=== PATIENT | female | born 1935 | race Caucasian/White ===

== ENCOUNTER 2019-07-18 09:45 | Observation (INO) | payer OTHER ==
[2019-07-18 09:59] VITALS: BMI 17.6
--- NOTE | 2019-07-18 10:11 | PDOC ---
History of Present Illness - General Chief Complaint: Syncope/Near Syncope Stated Complaint: R/O SEIZURE Time Seen by Provider: 07/18/19 10:09 History Source: Patient Exam Limitations: No Limitations - History of Present Illness Initial Comments: 07/18/19 10:09 Chino Gupta is an 84F sister from a [facility] with PMH hypothydroidism, HTN, fall down stairs in 2019 c/b C1-C2 fracture s/p repair presenting with syncopal episode. 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 No report of head injury or fall from standing. Patient reports gnosticism was especially hot today and that she did not eat breakfast. Denies chest pain, SOB, palpitations, fever/chills, cough, dizziness prior to event. Woke up without any deficits. Denies any tongue biting, bowel/bladder incontinence during event. Past History - Past Medical History Allergies/Adverse Reactions: Allergies Allergy/AdvReac Type Severity Reaction Status Date / Time No Known Allergies Allergy Verified 07/18/19 09:50 Home Medications: Ambulatory Orders Aspirin 81 mg PO DAILY 07/18/19 Calcium Carbonate [Calcium] 500 mg PO DAILY 07/18/19 Enalapril Maleate 5 mg PO DAILY 07/18/19 Levothyroxine [Synthroid -] 25 mcg PO DAILY 07/18/19 Metoprolol Tartrate 25 mg PO BID 07/18/19 Sodium Chloride Tablet - 1 gm PO BID 07/18/19 CVA: Yes COPD: No HTN: Yes Seizures: Yes (hypothyroid.) - Psycho Social/Smoking Cessation Hx Smoking History: Never smoked Hx Alcohol Use: No Drug/Substance Use Hx: No Review of Systems - Review of Systems Able to Perform ROS?: Yes Constitutional: No: Chills, Fever HEENTM: Yes: Hearing Loss (chronic). No: Eye Pain, Blurred Vision Respiratory: No: Cough, Shortness of Breath, Wheezing Cardiac (ROS): Yes: Syncope. No: Chest Pain, Edema, Lightheadedness, Palpitations, Chest Tightness ABD/GI: No: Constipated, Diarrhea, Nausea, Poor Appetite, Poor Fluid Intake, Vomiting : No: Burning, Dysuria, Discharge, Frequency, Flank Pain, Hematuria Musculoskeletal: No: Symptoms Reported Integumentary: No: Symptoms Reported Neurological: No: Symptoms reported Endocrine: No: Symptoms Reported Hematologic/Lymphatic: No: Symptoms Reported All Other Systems: Reviewed and Negative *Physical Exam - Vital Signs Last Vital Signs Temp Pulse Resp BP Pulse Ox 97.4 F L 67 16 158/79 100 07/18/19 09:53 07/18/19 09:53 07/18/19 09:53 07/18/19 09:53 07/18/19 09:53 - Physical Exam General Appearance: Yes: Nourished, Appropriately Dressed. No: Apparent Distress HEENT: positive: EOMI, [place], Normal Voice, Pharynx Normal. negative: Symmetrical, Scleral Icterus (R), Scleral Icterus (L), Pharyngeal Erythema, Tonsillar Exudate, Hearing Grossly Normal (very hard of hearing) Neck: positive: Trachea midline, Normal Thyroid, Supple, Other (well-healed L neck incision, non-tender, non-erythematous). negative: Tender, Rigid, Lymphadenopathy (R), Lymphadenopathy (L), Tender lateral, Tender midline Respiratory/Chest: positive: Lungs Clear, Normal Breath Sounds. negative: Chest Tender, Respiratory Distress, Accessory Muscle Use, Crackles, Rales, Rhonchi, Stridor, Wheezing Cardiovascular: positive: Regular Rhythm, Regular Rate, Murmur Gastrointestinal/Abdominal: positive: Normal Bowel Sounds, Flat, Soft. negative : Tender, Pulsatile Mass, Guarding, Rebound, Hernia Musculoskeletal: positive: Normal Inspection. negative: CVA Tenderness, Vertebral Tenderness Extremity: positive: Normal Capillary Refill, Normal Inspection, Normal Range of Motion, Pelvis Stable. negative: Tender, Cyanosis, Pedal Edema, Swelling Integumentary: positive: Normal Color, Dry, Warm Neurologic: positive: it systems analyst II-XII NML intact, Fully Oriented, Alert, Normal Mood/ Affect, Normal Response, Motor Strength 5/5, Finger to Nose (normal). negative : Facial Droop, Numbness, Sensory Deficit ED Treatment Course - LABORATORY CBC & Chemistry Diagram: 07/19/19 05:25 07/19/19 05:25 - ADDITIONAL ORDERS Additional order review: Laboratory Results 07/18/19 09:58 POC Glucometer 120 07/18/19 09:58 POC Glucometer 120 Medical Decision Making - Medical Decision Making 07/18/19 12:56 Patient has history syncope and fall s/p cervical spine injury and surgery, HTN , hypothyroidism, presents with non-traumatic syncope without prodromal sx while sitting in the setting of sitting in a hot gnosticism without eating breakfast. BGM in ED 120. Presentation most concerning for cardiac cause of syncope. Low likelihood of neuro etiology as has no deficits concerning for brain lesion, no recent head trauma, no history of seizure disorder, no tongue biting or bowel/bladder incontinence. VS stable. [place] administration present in ED and aware of plan. Contact information for [facility]: - Joya Davila (Director of Health Services): [phone] - Mulu Howard (Nurse): [phone] - CMP/CBC for eval lytes as etiology of syncope - CP/ECG/CXR for eval cardiac etiology of syncope - 1L IVF for rehydration - UA for eval UTI - Orthostatic VS 07/18/19 13:06 Labs notable for: - CBC WNL - CMP/CP hemolyzed, will re-draw 07/18/19 13:51 CXR no acute chest pathology. 07/18/19 14:22 ECG sinus rhythm with HR 62, QRS 74, QTc 456, inverted P wave in V1, no other ischemic changes. 07/18/19 14:25 CMP/CP WNL on repeat draw 3 hours later. Will admit for tele/obs for syncope. 07/18/19 14:54 Discussed case with admitting team kierra Mirza for admit to tele under Dr. Cheney Plan to get ECHO today. Discharge - Discharge Information Problems reviewed: Yes Clinical Impression/Diagnosis: Syncope Qualifiers: Syncope type: unspecified Qualified Code(s): R55 - Syncope and collapse Condition: Stable Disposition: HOME - Follow up/Referral - Patient Discharge Instructions - Post Discharge Activity
--- NOTE | 2019-07-18 10:26 | PDOC ---
*Physical Exam - Vital Signs Last Vital Signs Temp Pulse Resp BP Pulse Ox 97.4 F L 67 16 158/79 100 07/18/19 09:53 07/18/19 09:53 07/18/19 09:53 07/18/19 09:53 07/18/19 09:53 ED Treatment Course - LABORATORY CBC & Chemistry Diagram: 07/18/19 11:14 07/18/19 13:50 - ADDITIONAL ORDERS Additional order review: Laboratory Results 07/18/19 09:58 POC Glucometer 120 07/18/19 09:58 POC Glucometer 120 Medical Decision Making - Medical Decision Making 07/18/19 10:21 Patient seen as pre-attending with Dr. Hsu (PGY-1) and Dr. Ramirez (Attending) 84 y/o female present with syncopal episode earlier this am. States she was standing in anglican when she felt lightheaded and went to sit down. Reported 1- 2 minutes of unresponsiveness to voice s/p snycopal episode in anglican while sitting in chair - bystanders reported she was unresponsive to voice, shaking. No reported fall/head trauma. No bowel/bladder incontinence. No pre-syncopal fall, chest pain, shortness of breath. Reports she did not eat much the last few days. Cloth Shrinking Supervisor report patient had mechanical fall with C1/C2 trauma s /p surgery and she has recently relocated to [place] in the care of the anglican because she is unable to care for herself at home. Will evaluate for r/o ACS, patient requires admission for drop syncope. Also consider dehydration, electrolyte derangement, vasovagal. Joya Davila, [facility], Coordinator of Health Service Mulu Howard, [place] Nurse Manager Mall, Discharge - Discharge Information Problems reviewed: Yes Clinical Impression/Diagnosis: Syncope Qualifiers: Syncope type: unspecified Qualified Code(s): R55 - Syncope and collapse Condition: Stable Disposition: HOME - Admission Yes - Follow up/Referral - Patient Discharge Instructions - Post Discharge Activity
[2019-07-18] MEDS ORDERED: SODIUM CHLORIDE 0.9% 500 ML INFUS.BAG IV ONE (11:21)
[2019-07-18 11:29] LABS: BASO % 0.9 % (0-2.0); EOS % 2.1 % (0-4.5); HEMATOCRIT 43.1 % (32.4-45.2); HEMOGLOBIN 14.8 GM/dL (10.7-15.3); LYMPH % 19.5 % (8-40); MCH 33.6 pg (25.7-33.7); MCHC 34.2 g/dl (32.0-36.0); MEAN CELL VOLUME 98.2 fl (80-96); MEAN PLT VOLUME 8.3 fl (7.5-11.1); MONO % 6.6 % (3.8-10.2); NEUT % 70.9 % (42.8-82.8); PLATELET COUNT 223 K/MM3 (134-434); RBC 4.39 M/mm3 (3.60-5.2); RDW 13.7 % (11.6-15.6); WHITE BLOOD COUNT 5.7 K/mm3 (4.0-10.0)
[2019-07-18 14:24] LABS: ALBUMIN 3.7 g/dl (3.4-5.0); BLOOD UREA NITROGEN 26.1 mg/dL (7-18); CALCIUM 9.1 mg/dL (8.5-10.1); CREATININE 1.2 mg/dL (0.55-1.3); POTASSIUM 4.3 mmol/L (3.5-5.1); TOT PROT 7.6 g/dl (6.4-8.2)
--- NOTE | 2019-07-18 15:54 | PDOC ---
Documentation entered by Sushila Fair SCRIBE, acting as scribe for Frank Ramirez MD. Frank Ramirez MD: This documentation has been prepared by the Marv bowers Xhesika, SCRIBE, under my direction and personally reviewed by me in its entirety. I confirm that the documentation accurately reflects all work, treatment, procedures, and medical decision making performed by me. Attending Attestation - Resident Resident Name: Emeka Hsu - ED Attending Attestation I have performed the following: I have examined & evaluated the patient, The case was reviewed & discussed with the resident, I agree w/resident's findings & plan, Exceptions are as noted - HPI HPI: 07/18/19 12:52 The patient is a 84 year old female with a PMH of hypothyroidism, HTN, fell down stairs in 2019 c/b C1-C2 fracture s/p repair who presents to the ED s/p syncopal episode. Pt states she was at [facility] felt hot/overheated and syncopized. Pt states she did not have breakfast this morning before [facility] and she normally eats and drinks before going to [facility]. Pt states she has endorsed similar symptoms in the past. The patient denies chest pain, shortness of breath, and dizziness. Denies fever , chills, cough, nausea, vomiting, and constipation. Denies dysuria, frequency, urgency and hematuria. Allergy: NKDA Social: Denies alcohol, cigarette or drug use. - Physicial Exam PE: 07/18/19 12:52 Vitals: Triage Vital signs reviewed General Appearance: no acute distress, well nourished well developed, Neck: Supple;No Nuchal rigidity Chest Wall: Nontender Cardiac: Regular rate and rhythm, no murmurs, no rubs, no gallops, Lungs: Clear to auscultation bilateral, good air movement bilaterally, Abdomen: Soft, nondistended, normal bowel sounds, nontender to palpation Skin: Warm and dry, no rashes or lesions, no petechiae Psych: normal mood, normal affect - Medical Decision Making 07/18/19 17:03 84 years old with syncopal episode Possible vagal but does not have a senior electronics technician Will admit to hospital for echo and further management
--- NOTE | 2019-07-18 16:05 | PN ---
Teaching Attending Note Name of Resident: Ang Rodriguez ATTENDING PHYSICIAN STATEMENT I saw and evaluated the patient. I reviewed the resident's note and discussed the case with the resident. I agree with the resident's findings and plan as documented. SUBJECTIVE: Patient is an 84 year old female with a past medical history of HTN, hypothyroidism who presented after a syncopal episode OBJECTIVE: Vital Signs Temperature 97.4 F L 07/18/19 09:53 Pulse Rate 67 07/18/19 09:53 Respiratory Rate 16 07/18/19 09:53 Blood Pressure 158/79 07/18/19 09:53 O2 Sat by Pulse Oximetry (%) 100 07/18/19 09:53 GENERAL: The patient is awake, alert, and fully oriented, in no acute distress. HEAD: Normal with no signs of trauma. EYES: PERRL, extraocular movements intact, sclera anicteric, conjunctiva clear. ENT: Ears normal, oropharynx clear without exudates, moist mucous membranes. NECK: Trachea midline, full range of motion, supple. LUNGS: Breath sounds equal, clear to auscultation bilaterally, no wheezes, no crackles, no accessory muscle use. HEART: Regular rate and rhythm, S1, S2 without murmur, rub or gallop. ABDOMEN: Soft, nontender, nondistended, normoactive bowel sounds, no guarding, no rebound, no hepatosplenomegaly, no masses. EXTREMITIES: 2+ pulses, warm, well-perfused, no edema. NEUROLOGICAL: Cranial nerves II through XII grossly intact. Normal speech, gait not observed. PSYCH: Normal mood, normal affect. SKIN: Warm, dry, normal turgor, no rashes or lesions noted CBCD WBC 5.7 K/mm3 (4.0-10.0) 07/18/19 11:14 RBC 4.39 M/mm3 (3.60-5.2) 07/18/19 11:14 Hgb 14.8 GM/dL (10.7-15.3) 07/18/19 11:14 Hct 43.1 % (32.4-45.2) 07/18/19 11:14 MCV 98.2 fl (80-96) H 07/18/19 11:14 MCHC 34.2 g/dl (32.0-36.0) 07/18/19 11:14 RDW 13.7 % (11.6-15.6) 07/18/19 11:14 Plt Count 223 K/MM3 (134-434) 07/18/19 11:14 MPV 8.3 fl (7.5-11.1) 07/18/19 11:14 CMP Sodium 141 mmol/L (136-145) 07/18/19 13:50 Potassium 4.3 mmol/L (3.5-5.1) 07/18/19 13:50 Chloride 107 mmol/L (98-107) 07/18/19 13:50 Carbon Dioxide 29 mmol/L (21-32) 07/18/19 13:50 Anion Gap 5 MMOL/L (8-16) L 07/18/19 13:50 BUN 26.1 mg/dL (7-18) H 07/18/19 13:50 Creatinine 1.2 mg/dL (0.55-1.3) 07/18/19 13:50 Random Glucose 129 mg/dL (74-106) H 07/18/19 13:50 Calcium 9.1 mg/dL (8.5-10.1) 07/18/19 13:50 Total Bilirubin 1.0 mg/dL (0.2-1) 07/18/19 13:50 AST 29 U/L (15-37) 07/18/19 13:50 ALT 28 U/L (13-61) 07/18/19 13:50 Alkaline Phosphatase 103 U/L (45-117) 07/18/19 13:50 Total Protein 7.6 g/dl (6.4-8.2) 07/18/19 13:50 Albumin 3.7 g/dl (3.4-5.0) 07/18/19 13:50 CARDIAC ENZYMES Creatine Kinase 105 U/L (26-192) 07/18/19 13:50 Troponin I < 0.02 ng/ml (0.00-0.05) 07/18/19 13:50 Home Medications Medication Instructions Recorded Aspirin 81 mg PO DAILY 07/18/19 Calcium Carbonate [Calcium] 500 mg PO DAILY 07/18/19 Enalapril Maleate 5 mg PO DAILY 07/18/19 Levothyroxine [Synthroid -] 25 mcg PO DAILY 07/18/19 Metoprolol Tartrate 25 mg PO BID 07/18/19 Sodium Chloride Tablet - 1 gm PO BID 07/18/19 Current Medications Generic Name Dose Route Start Last Admin Trade Name Myles PRN Reason Stop Dose Admin Aspirin 81 mg 07/19/19 10:00 Asa - PO DAILY [facility] Atorvastatin Calcium 40 mg 07/18/19 22:00 Lipitor - PO HS EMMANUEL Calcium Carbonate 500 mg 07/19/19 10:00 Os-Bib 500mg - PO DAILY [facility] Enalapril Maleate 5 mg 07/19/19 10:00 Vasotec - PO DAILY EMMANU[facility] Enoxaparin Sodium 40 mg 07/19/19 10:00 Lovenox - SQ DAILY [facility] Sodium Chloride 1,000 mls @ 75 mls/hr 07/18/19 17:30 Normal Saline - IV [facility] Levothyroxine Sodium 25 mcg 07/19/19 07:00 Synthroid - PO DAILY@0700 [facility] Metoprolol Tartrate 25 mg 07/18/19 22:00 Lopressor - PO BID [facility] Sodium Chloride 1 gm 07/18/19 22:00 Sodium Chloride Tablet - PO BID [facility] EKG--> sinus rhythm with PAC, age indeterminate inferior infarct, questionable for age indeterminate anterior infarct ASSESSMENT AND PLAN: Patient is an 84yof with a PMHx of HTN, hypothyroidism admitted for syncope. #Syncope: most likely due to dehydration , check orthostattics ,on IVF NS at 75cc/hr x 1liter, EKG as above - echo noting EF 55-60%, LV function normal, RV size and function normal, mild mitral and tricuspid regurg, no pericardial effuion -tele. 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
--- NOTE | 2019-07-18 16:24 | ECHO ---
Name: JOSE SILVER Exam:Adult Echocardiogram Study Date: 07/18/2019 03:57 PM Age: 84 yrs Reason For Study: SYNCOPE Height: 63 in Weight: 109 lb BSA: 1.5 m2 MMode/2D Measurements & Calculations IVSd: 1.0 cm Ao root diam: 2.9 cm LVIDd: 3.3 cm LA dimension: 3.0 cm LVIDs: 2.1 cm ACS: 1.5 cm LVPWd: 1.0 cm EDV(Teich): 42.5 ml LVOT diam: 1.8 cm ESV(Teich): 14.5 ml LAV (MOD-bp): 71.0 ml TAPSE: 2.1 cm RV S Sagar: 13.6 cm/sec Doppler Measurements & Calculations MV E max sagar: 75.0 cm/sec Ao V2 max: 133.0 cm/sec MV A max sagar: 68.1 cm/sec Ao max P.1 mmHg MV E/A: 1.1 Ao V2 mean: 84.1 cm/sec MV dec time: 0.25 sec Ao mean P.4 mmHg Ao V2 VTI: 26.7 cm TAMARA(I,D): 2.0 cm2 TAMARA(V,D): 1.8 cm2 LV V1 max P.6 mmHg MR max sagar: 496.1 cm/sec LV V1 mean P.7 mmHg MR max P.4 mmHg LV V1 max: 95.3 cm/sec LV V1 mean: 60.7 cm/sec LV V1 VTI: 22.0 cm SV(LVOT): 53.9 ml TR max sagar: 254.3 cm/sec TR max P.0 mmHg PA V2 max: 96.4 cm/sec Med Peak E' Sagar: 6.6 cm/sec PA max P.7 mmHg Med E/e': 11.3 PA acc slope: 1208 cm/sec2 Lat Peak E' Sagar: 9.3 cm/sec PA acc time: 0.07 sec Lat E/e': 8.1 PA pr(Accel): 45.7 mmHg Left Ventricle Left ventricular systolic function is normal. Ejection Fraction = 55-60%. Right Ventricle The right ventricle is normal in size and function. Atria The left atrium is borderline dilated. Right atrial size is normal. Mitral Valve The mitral valve is normal in structure and function. There is no mitral valve stenosis. There is mil d mitral regurgitation. Tricuspid Valve The tricuspid valve is normal in structure and function. There is mild tricuspid regurgitation. Right ventricular systolic pressure is normal. Aortic Valve The aortic valve is trileaflet. No hemodynamically significant valvular aortic stenosis. No aortic regurgitation is present. Pulmonic Valve The pulmonic valve is not well seen, but is grossly normal. There is no pulmonic valvular stenosis. Great Vessels The aortic root is normal size. Pericardium/Pleura There is no pericardial effusion. Interpretation Summary Left ventricular systolic function is normal. Ejection Fraction = 55-60%. The right ventricle is normal in size and function. There is mild mitral regurgitation. There is mild tricuspid regurgitation. There is no pericardial effusion. MD Naranjo *Abdi 07/18/2019 04:24 PM
--- NOTE | 2019-07-18 16:43 | HP ---
CHIEF COMPLAINT: syncope PCP: [facility] HISTORY OF PRESENT ILLNESS: Chino Gupta is an 84 year old female with a past medical history of HTN, hypothyroidism who is presenting after a syncopal episode. Of note, she had a recent fall in late 2019 where she had a mechanical fall down some stairs which resulted in a C1-C2 fracture which was repaired. On this episode, the patient stated that she had not eaten breakfast, had any fluids that morning, and had missed her dose of her levothyroxine medication. She was in [place], had felt diaphoretic and sat down and had a syncopal episode during which she did not fall or hit her head. She denied any episodes of palpitations, dizziness, chest pain, shortness of breath, fever, chills, visual changes, hearing changes, tinnitus, abdominal pain, nausea, vomiting, constipation, diarrhea, focal weakness, numbness, tingling, dysuria, hematuria. She denied any recent illnesses, sick contacts, or travel. Currently, she stated she felt well and was eager to go back to the [facility]. Denied any episodes similar to this in the past. Spoke with Mulu Howard (nurse) at [facility] and managed to obtain patient's medication records from [facility]. ER course was notable for: (1) Orthostatics performed but not documented, given 1L of fluids (2) EKG noting sinus rhythm with PAC, age indeterminate inferior infarct, questionable for age indeterminate anterior infarct Recent Travel: denies PAST MEDICAL HISTORY: as above PAST SURGICAL HISTORY: C1-C2 fracture repair Social History: Smoking: denies Alcohol: denies Drugs: denies Current sister at [employer]. Previously worked as a teacher. Will be entering [facility]. Allergies No Known Allergies Allergy (Verified 07/18/19 09:50) HOME MEDICATIONS: Home Medications Medication Instructions Recorded Aspirin 81 mg PO DAILY 07/18/19 Propranolol HCl 10 mg PO TID 07/18/19 REVIEW OF SYSTEMS CONSTITUTIONAL: Absent: fever, chills, diaphoresis, generalized weakness, malaise, loss of appetite HEENT: Absent: rhinorrhea, nasal congestion, throat pain, throat swelling, difficulty swallowing, visual changes CARDIOVASCULAR: syncope, lightheadedness Absent: chest pain, palpitations, irregular heart rate, peripheral edema RESPIRATORY: Absent: cough, shortness of breath, dyspnea with exertion, orthopnea, wheezing GASTROINTESTINAL: Absent: abdominal pain, abdominal distension, nausea, vomiting, diarrhea, constipation GENITOURINARY: Absent: dysuria, frequency, urgency, hesitancy, hematuria, flank pain MUSCULOSKELETAL: Absent: myalgia, arthralgia, joint swelling, back pain, neck pain SKIN: Absent: rash, itching, pallor HEMATOLOGIC/IMMUNOLOGIC: Absent: easy bleeding, easy bruising, lymphadenopathy, frequent infections ENDOCRINE: Absent: unexplained weight gain, unexplained weight loss, heat intolerance, cold intolerance NEUROLOGIC: Absent: headache, focal weakness or paresthesias, dizziness, unsteady gait, seizure, mental status changes PSYCHIATRIC: Absent: anxiety, depression, suicidal or homicidal ideation, hallucinations PHYSICAL EXAMINATION Vital Signs - 24 hr 07/18/19 09:53 Temperature 97.4 F L Pulse Rate 67 Respiratory 16 Rate Blood Pressure 158/79 O2 Sat by Pulse 100 Oximetry (%) GENERAL: Awake, alert, and fully oriented, in no acute distress. HEAD: Normal with no signs of trauma. EYES: Pupils equal, round and reactive to light, extraocular movements intact, conjunctiva clear. EARS, NOSE, THROAT: Oropharynx clear without exudates. Moist mucous membranes. NECK: Normal range of motion, supple without JVD. LUNGS: Breath sounds equal, clear to auscultation bilaterally. No wheezes, and no crackles. No accessory muscle use. HEART: Regular rate and rhythm, normal S1 and S2 without murmur, rub. ABDOMEN: Soft, nontender, not distended, normoactive bowel sounds, no guarding, no rebound, no masses. MUSCULOSKELETAL: Normal range of motion at all joints. No bony deformities or tenderness. No CVA tenderness. UPPER EXTREMITIES: 2+ pulses, warm, well-perfused. No cyanosis. No clubbing. No peripheral edema. LOWER EXTREMITIES: 2+ pulses, warm, well-perfused. No calf tenderness. No peripheral edema. NEUROLOGICAL: Cranial nerves II-XII intact. 5/5 muscle strength upper and lower extremities. Sensation intact to gross touch throughout PSYCHIATRIC: Cooperative. Good eye contact. Appropriate mood and affect. SKIN: Warm, dry, normal turgor, multiple seborrheic keratosis lesions noted on the back. Laboratory Results - last 24 hr 07/18/19 07/18/19 07/18/19 09:58 10:11 11:14 WBC 5.7 RBC 4.39 Hgb 14.8 Hct 43.1 MCV 98.2 H MCH 33.6 MCHC 34.2 RDW 13.7 Plt Count 223 MPV 8.3 Absolute Neuts (auto) 4.0 Neutrophils % 70.9 Lymphocytes % 19.5 Monocytes % 6.6 Eosinophils % 2.1 Basophils % 0.9 Nucleated RBC % 0 Sodium Cancelled Potassium Cancelled Chloride Cancelled Carbon Dioxide Cancelled Anion Gap Cancelled BUN Cancelled Creatinine Cancelled Est GFR (CKD-EPI)AfAm Cancelled Est GFR (CKD-EPI)NonAf Cancelled POC Glucometer 120 Random Glucose Cancelled Calcium Cancelled Total Bilirubin Cancelled AST Cancelled ALT Cancelled Alkaline Phosphatase Cancelled Creatine Kinase Cancelled Troponin I Cancelled Total Protein Cancelled Albumin Cancelled 07/18/19 07/18/19 13:50 13:50 WBC RBC Hgb Hct MCV MCH MCHC RDW Plt Count MPV Absolute Neuts (auto) Neutrophils % Lymphocytes % Monocytes % Eosinophils % Basophils % Nucleated RBC % Sodium 141 Potassium 4.3 Chloride 107 Carbon Dioxide 29 Anion Gap 5 L BUN 26.1 H Creatinine 1.2 Est GFR (CKD-EPI)AfAm 47.39 Est GFR (CKD-EPI)NonAf 40.89 POC Glucometer Random Glucose 129 H Calcium 9.1 Total Bilirubin 1.0 AST 29 ALT 28 Alkaline Phosphatase 103 Creatine Kinase 105 Troponin I < 0.02 Total Protein 7.6 Albumin 3.7 EKG--> sinus rhythm with PAC, age indeterminate inferior infarct, questionable for age indeterminate anterior infarct ASSESSMENT/PLAN: Chino Gupta is an 84 year old female with a past medical history of HTN, hypothyroidism admitted for syncope. 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 - start atorvastatin 40mg and monitor LFTs, will require LFT measurement in 2-4 weeks - lipid profile Hx of Hyponatremia - as per speaking with nurse at [place] - resume home NaCl - continue IVF NS at 75cc/hr DVT PPx - Lovenox 40mg subq daily FEN - NS at 75cc/hr - continue to monitor electrolytes and replete as necessary - sodium controlled diet Dispo - observation on telemetry Family Medical History Family History: Denies Visit type - Emergency Visit Emergency Visit: Yes ED Registration Date: 07/18/19 Care time: The patient presented to the Emergency Department on the above date and was hospitalized for further evaluation of their emergent condition. - New Patient This patient is new to me today: Yes Date on this admission: 07/18/19 - Critical Care Critical Care patient: No
[2019-07-18] MEDS ORDERED: SODIUM CHLORIDE 1,000 ML IV SCH (17:30)
[2019-07-18] MEDS ORDERED: SODIUM CHLORIDE 0.45% 1,000 ML IV SCH (19:30)
[2019-07-18] MEDS ORDERED: ATORVASTATIN CA 40 MG TABLET (FP) PO SCH (22:00)
[2019-07-18] MEDS: METOPROLOL TARTRATE 25 MG TABLET (FP) PO SCH (22:44)
[2019-07-18] MEDS: SODIUM CHLORIDE 1 GM TABLET PO SCH (22:44)
[2019-07-19] MEDS ORDERED: LEVOTHYROXINE NA 25 MCG TABLET (FP) PO SCH (07:00)
[2019-07-19 07:02] LABS: EOS % 2.7 % (0-4.5); HEMATOCRIT 37.7 % (32.4-45.2); HEMOGLOBIN 12.7 GM/dL (10.7-15.3); LYMPH % 23.5 % (8-40); MCH 33.2 pg (25.7-33.7); MCHC 33.8 g/dl (32.0-36.0); MEAN CELL VOLUME 98.4 fl (80-96); MONO % 9.6 % (3.8-10.2); NEUT % 63.2 % (42.8-82.8); PLATELET COUNT 214 K/MM3 (134-434); RBC 3.83 M/mm3 (3.60-5.2); RDW 13.4 % (11.6-15.6); WHITE BLOOD COUNT 6.3 K/mm3 (4.0-10.0)
[2019-07-19 07:42] LABS: BILIRUBIN,TOTAL 1.3 mg/dL (0.2-1); BLOOD UREA NITROGEN 18.1 mg/dL (7-18); CALCIUM 8.3 mg/dL (8.5-10.1); CREATININE 0.9 mg/dL (0.55-1.3); MAGNESIUM 2.2 mg/dL (1.8-2.4); PHOSPHOROUS 3.3 mg/dL (2.5-4.9); POTASSIUM 3.8 mmol/L (3.5-5.1); TOT PROT 6.2 g/dl (6.4-8.2)
--- NOTE | 2019-07-19 09:32 | PN ---
Progress Note (short form) - Note Progress Note: Patient is comfortable with kavon cute distress.no fever or chills. Vital Signs Temperature 97.5 F L 07/19/19 02:00 Pulse Rate 71 07/19/19 08:00 Respiratory Rate 20 07/19/19 02:00 Blood Pressure 116/74 07/19/19 08:00 O2 Sat by Pulse Oximetry (%) 97 07/18/19 18:35 GENERAL: The patient is awake, alert, and fully oriented, in no acute distress. HEAD: Normal with no signs of trauma. EYES: PERRL, extraocular movements intact, sclera anicteric, conjunctiva clear. ENT: Ears normal, oropharynx clear without exudates, moist mucous membranes. NECK: Trachea midline, full range of motion, supple. LUNGS: Breath sounds equal, clear to auscultation bilaterally, no wheezes, no crackles, no accessory muscle use. HEART: Regular rate and rhythm, S1, S2 without murmur, rub or gallop. ABDOMEN: Soft, nontender, nondistended, normoactive bowel sounds, no guarding, no rebound, no hepatosplenomegaly, no masses. EXTREMITIES: 2+ pulses, warm, well-perfused, no edema. NEUROLOGICAL: Cranial nerves II through XII grossly intact. Normal speech, gait not observed. PSYCH: Normal mood, normal affect. SKIN: Warm, dry, normal turgor, no rashes or lesions noted CBCD WBC 6.3 K/mm3 (4.0-10.0) 07/19/19 05:25 RBC 3.83 M/mm3 (3.60-5.2) 07/19/19 05:25 Hgb 12.7 GM/dL (10.7-15.3) 07/19/19 05:25 Hct 37.7 % (32.4-45.2) 07/19/19 05:25 MCV 98.4 fl (80-96) H 07/19/19 05:25 MCHC 33.8 g/dl (32.0-36.0) 07/19/19 05:25 RDW 13.4 % (11.6-15.6) 07/19/19 05:25 Plt Count 214 K/MM3 (134-434) 07/19/19 05:25 MPV 8.0 fl (7.5-11.1) 07/19/19 05:25 CMP Sodium 142 mmol/L (136-145) 07/19/19 05:25 Potassium 3.8 mmol/L (3.5-5.1) 07/19/19 05:25 Chloride 109 mmol/L (98-107) H 07/19/19 05:25 Carbon Dioxide 27 mmol/L (21-32) 07/19/19 05:25 Anion Gap 5 MMOL/L (8-16) L 07/19/19 05:25 BUN 18.1 mg/dL (7-18) H 07/19/19 05:25 Creatinine 0.9 mg/dL (0.55-1.3) 07/19/19 05:25 Random Glucose 77 mg/dL (74-106) 07/19/19 05:25 Calcium 8.3 mg/dL (8.5-10.1) L 07/19/19 05:25 Total Bilirubin 1.3 mg/dL (0.2-1) H 07/19/19 05:25 AST 26 U/L (15-37) 07/19/19 05:25 ALT 21 U/L (13-61) 07/19/19 05:25 Alkaline Phosphatase 79 U/L (45-117) 07/19/19 05:25 Total Protein 6.2 g/dl (6.4-8.2) L 07/19/19 05:25 Albumin 3.0 g/dl (3.4-5.0) L 07/19/19 05:25 CARDIAC ENZYMES Creatine Kinase 105 U/L (26-192) 07/18/19 13:50 Troponin I < 0.02 ng/ml (0.00-0.05) 07/18/19 21:35 Current Medications Generic Name Dose Route Start Last Admin Trade Name Freq PRN Reason Stop Dose Admin Aspirin 81 mg 07/19/19 10:00 Asa - PO DAILY [facility] Atorvastatin Calcium 40 mg 07/18/19 22:00 07/18/19 22:44 Lipitor - PO 40 mg HS EMMANUEL Administration Calcium Carbonate 500 mg 07/19/19 10:00 Os-Bib 500mg - PO DAILY [facility] Enalapril Maleate 5 mg 07/19/19 10:00 Vasotec - PO DAILY [facility] Enoxaparin Sodium 40 mg 07/19/19 10:00 Lovenox - SQ DAILY EMMANUEL Levothyroxine Sodium 25 mcg 07/19/19 07:00 07/19/19 06:29 Synthroid - PO 25 mcg DAILY@0700 EMMANUEL Administration Metoprolol Tartrate 25 mg 07/18/19 22:00 07/18/19 22:44 Lopressor - PO 25 mg BID EMMANUEL Administration Sodium Chloride 1 gm 07/18/19 22:00 07/18/19 22:44 Sodium Chloride Tablet - PO 1 gm BID EMMANUEL Administration Home Medications Medication Instructions Recorded Aspirin 81 mg PO DAILY 07/18/19 Calcium Carbonate [Calcium] 500 mg PO DAILY 07/18/19 Enalapril Maleate 5 mg PO DAILY 07/18/19 Levothyroxine [Synthroid -] 25 mcg PO DAILY 07/18/19 Metoprolol Tartrate 25 mg PO BID 07/18/19 Sodium Chloride Tablet - 1 gm PO BID 07/18/19 EKG--> sinus rhythm with PAC, age indeterminate inferior infarct, questionable for age indeterminate anterior infarct echo noting EF 55-60%, LV function normal, RV size and function normal, mild mitral and tricuspid regurg, no pericardial effuion ASSESSMENT AND PLAN: Patient is an 84yof with a PMHx of HTN, hypothyroidism admitted for syncope. 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
[2019-07-19] MEDS: METOPROLOL TARTRATE 25 MG TABLET (FP) PO SCH (09:44)
[2019-07-19] MEDS: SODIUM CHLORIDE 1 GM TABLET PO SCH (09:45)
[2019-07-19] MEDS ORDERED: ENALAPRIL MALEATE 5 MG TABLET (FP) PO SCH (10:00)
[2019-07-19] MEDS ORDERED: ASPIRIN 81 MG CHEWABLE TABLETS PO SCH (10:00)
[2019-07-19] MEDS ORDERED: CALCIUM (OYSTER SHELL) 500 MG TABLET (FP) PO SCH (10:00)
[2019-07-19] MEDS ORDERED: ENOXAPARIN NA (PORCINE) 40 MG/0.4 ML DISP.SYRIN SQ SCH (10:00)
--- NOTE | 2019-07-19 10:06 | PN ---
Progress Note (short form) - Note Progress Note: Vital Signs Temperature 97.5 F L 07/19/19 02:00 Pulse Rate 71 07/19/19 08:00 Respiratory Rate 20 07/19/19 02:00 Blood Pressure 116/74 07/19/19 08:00 O2 Sat by Pulse Oximetry (%) 97 07/18/19 18:35 GENERAL: The patient is awake, alert, and fully oriented, in no acute distress. HEAD: Normal with no signs of trauma. EYES: PERRL, extraocular movements intact, sclera anicteric, conjunctiva clear. ENT: Ears normal, oropharynx clear without exudates, moist mucous membranes. NECK: Trachea midline, full range of motion, supple. LUNGS: Breath sounds equal, clear to auscultation bilaterally, no wheezes, no crackles, no accessory muscle use. HEART: Regular rate and rhythm, S1, S2 without murmur, rub or gallop. ABDOMEN: Soft, nontender, nondistended, normoactive bowel sounds, no guarding, no rebound, no hepatosplenomegaly, no masses. EXTREMITIES: 2+ pulses, warm, well-perfused, no edema. NEUROLOGICAL: Cranial nerves II through XII grossly intact. Normal speech, gait not observed. PSYCH: Normal mood, normal affect. SKIN: Warm, dry, normal turgor, no rashes or lesions noted Current Medications Generic Name Dose Route Start Last Admin Trade Name Freq PRN Reason Stop Dose Admin Aspirin 81 mg 07/19/19 10:00 07/19/19 09:44 Asa - PO 81 mg DAILY EMMANUEL Administration Atorvastatin Calcium 40 mg 07/18/19 22:00 07/18/19 22:44 Lipitor - PO 40 mg HS EMMANUEL Administration Calcium Carbonate 500 mg 07/19/19 10:00 07/19/19 09:44 Os-Bib 500mg - PO 500 mg DAILY EMMANUEL Administration Enalapril Maleate 5 mg 07/19/19 10:00 07/19/19 09:44 Vasotec - PO 5 mg DAILY EMMANUEL Administration Enoxaparin Sodium 40 mg 07/19/19 10:00 Lovenox - SQ DAILY [facility] Levothyroxine Sodium 25 mcg 07/19/19 07:00 07/19/19 06:29 Synthroid - PO 25 mcg DAILY@0700 EMMANUEL Administration Metoprolol Tartrate 25 mg 07/18/19 22:00 07/19/19 09:44 Lopressor - PO 25 mg BID EMMANUEL Administration Sodium Chloride 1 gm 07/18/19 22:00 07/19/19 09:45 Sodium Chloride Tablet - PO 1 gm BID EMMANUEL Administration Home Medications Medication Instructions Recorded Aspirin 81 mg PO DAILY 07/18/19 Calcium Carbonate [Calcium] 500 mg PO DAILY 07/18/19 Enalapril Maleate 5 mg PO DAILY 07/18/19 Levothyroxine [Synthroid -] 25 mcg PO DAILY 07/18/19 Metoprolol Tartrate 25 mg PO BID 07/18/19 Sodium Chloride Tablet - 1 gm PO BID 07/18/19 CBCD WBC 6.3 K/mm3 (4.0-10.0) 07/19/19 05:25 RBC 3.83 M/mm3 (3.60-5.2) 07/19/19 05:25 Hgb 12.7 GM/dL (10.7-15.3) 07/19/19 05:25 Hct 37.7 % (32.4-45.2) 07/19/19 05:25 MCV 98.4 fl (80-96) H 07/19/19 05:25 MCHC 33.8 g/dl (32.0-36.0) 07/19/19 05:25 RDW 13.4 % (11.6-15.6) 07/19/19 05:25 Plt Count 214 K/MM3 (134-434) 07/19/19 05:25 MPV 8.0 fl (7.5-11.1) 07/19/19 05:25 CMP Sodium 142 mmol/L (136-145) 07/19/19 05:25 Potassium 3.8 mmol/L (3.5-5.1) 07/19/19 05:25 Chloride 109 mmol/L (98-107) H 07/19/19 05:25 Carbon Dioxide 27 mmol/L (21-32) 07/19/19 05:25 Anion Gap 5 MMOL/L (8-16) L 07/19/19 05:25 BUN 18.1 mg/dL (7-18) H 07/19/19 05:25 Creatinine 0.9 mg/dL (0.55-1.3) 07/19/19 05:25 Random Glucose 77 mg/dL (74-106) 07/19/19 05:25 Calcium 8.3 mg/dL (8.5-10.1) L 07/19/19 05:25 Total Bilirubin 1.3 mg/dL (0.2-1) H 07/19/19 05:25 AST 26 U/L (15-37) 07/19/19 05:25 ALT 21 U/L (13-61) 07/19/19 05:25 Alkaline Phosphatase 79 U/L (45-117) 07/19/19 05:25 Total Protein 6.2 g/dl (6.4-8.2) L 07/19/19 05:25 Albumin 3.0 g/dl (3.4-5.0) L 07/19/19 05:25 CARDIAC ENZYMES Creatine Kinase 105 U/L (26-192) 07/18/19 13:50 Troponin I < 0.02 ng/ml (0.00-0.05) 07/18/19 21:35 EKG--> sinus rhythm with PAC, age indeterminate inferior infarct, questionable for age indeterminate anterior infarct ASSESSMENT AND PLAN: Patient is an 84yof with a PMHx of HTN, hypothyroidism admitted for syncope. #Syncope: most likely due to dehydration , check orthostattics ,on IVF NS at 75cc/hr x 1liter, EKG as above - echo noting EF 55-60%, LV function normal, RV size and function normal, mild mitral and tricuspid regurg, no pericardial effuion -tele. 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
[2019-07-19] MEDS ORDERED: LEVOTHYROXINE NA 25 MCG TABLET (FP) PO ONE (13:00)
[2019-07-19] MEDS ORDERED: LEVOTHYROXINE NA 50 MCG TABLET (FP) PO SCH (13:03)
--- NOTE | 2019-07-19 13:38 | EKG ---
Test Reason : Blood Pressure : / mmHG Vent. Rate : 062 BPM Atrial Rate : 062 BPM P-R Int : 164 ms QRS Dur : 074 ms QT Int : 456 ms P-R-T Axes : 084 -04 018 degrees QTc Int : 462 ms SINUS RHYTHM WITH PREMATURE ATRIAL COMPLEXES POSSIBLE LEFT ATRIAL ENLARGEMENT INFERIOR INFARCT , AGE UNDETERMINED CANNOT RULE OUT ANTEROSEPTAL INFARCT , AGE UNDETERMINED ABNORMAL ECG NO PREVIOUS ECGS AVAILABLE Confirmed by NANDO DELGADO MD ([id number]) on 07/19/2019 1:37:41 PM Referred By: Confirmed By:NANDO DELGAOD MD
--- NOTE | 2019-07-19 13:47 | DS ---
Physical Exam: SUBJECTIVE: Patient seen and examined Patient is feeling better, wants to go home OBJECTIVE: Vital Signs Temperature 97.5 F L 07/19/19 02:00 Pulse Rate 71 07/19/19 08:00 Respiratory Rate 20 07/19/19 02:00 Blood Pressure 116/74 07/19/19 08:00 O2 Sat by Pulse Oximetry (%) 97 07/18/19 18:35 GENERAL: The patient is awake, alert, and fully oriented, in no acute distress. HEAD: Normal with no signs of trauma. EYES: PERRL, extraocular movements intact, sclera anicteric, conjunctiva clear. ENT: Ears normal, oropharynx clear without exudates, moist mucous membranes. NECK: Trachea midline, full range of motion, supple. LUNGS: Breath sounds equal, clear to auscultation bilaterally, no wheezes, no crackles, no accessory muscle use. HEART: Regular rate and rhythm, S1, S2 without murmur, rub or gallop. ABDOMEN: Soft, nontender, nondistended, normoactive bowel sounds, no guarding, no rebound, no hepatosplenomegaly, no masses. EXTREMITIES: 2+ pulses, warm, well-perfused, no edema. NEUROLOGICAL: Cranial nerves II through XII grossly intact. Normal speech, gait not observed. PSYCH: Normal mood, normal affect. SKIN: Warm, dry, normal turgor, no rashes or lesions noted CBCD WBC 6.3 K/mm3 (4.0-10.0) 07/19/19 05:25 RBC 3.83 M/mm3 (3.60-5.2) 07/19/19 05:25 Hgb 12.7 GM/dL (10.7-15.3) 07/19/19 05:25 Hct 37.7 % (32.4-45.2) 07/19/19 05:25 MCV 98.4 fl (80-96) H 07/19/19 05:25 MCHC 33.8 g/dl (32.0-36.0) 07/19/19 05:25 RDW 13.4 % (11.6-15.6) 07/19/19 05:25 Plt Count 214 K/MM3 (134-434) 07/19/19 05:25 MPV 8.0 fl (7.5-11.1) 07/19/19 05:25 CMP Sodium 142 mmol/L (136-145) 07/19/19 05:25 Potassium 3.8 mmol/L (3.5-5.1) 07/19/19 05:25 Chloride 109 mmol/L (98-107) H 07/19/19 05:25 Carbon Dioxide 27 mmol/L (21-32) 07/19/19 05:25 Anion Gap 5 MMOL/L (8-16) L 07/19/19 05:25 BUN 18.1 mg/dL (7-18) H 07/19/19 05:25 Creatinine 0.9 mg/dL (0.55-1.3) 07/19/19 05:25 Random Glucose 77 mg/dL (74-106) 07/19/19 05:25 Calcium 8.3 mg/dL (8.5-10.1) L 07/19/19 05:25 Total Bilirubin 1.3 mg/dL (0.2-1) H 07/19/19 05:25 AST 26 U/L (15-37) 07/19/19 05:25 ALT 21 U/L (13-61) 07/19/19 05:25 Alkaline Phosphatase 79 U/L (45-117) 07/19/19 05:25 Total Protein 6.2 g/dl (6.4-8.2) L 07/19/19 05:25 Albumin 3.0 g/dl (3.4-5.0) L 07/19/19 05:25 CARDIAC ENZYMES Creatine Kinase 105 U/L (26-192) 07/18/19 13:50 Troponin I < 0.02 ng/ml (0.00-0.05) 07/18/19 21:35 Current Medications Generic Name Dose Route Start Last Admin Trade Name Freq PRN Reason Stop Dose Admin Aspirin 81 mg 07/19/19 10:00 Asa - PO DAILY [facility] Atorvastatin Calcium 40 mg 07/18/19 22:00 07/18/19 22:44 Lipitor - PO 40 mg HS EMMANUEL Administration Calcium Carbonate 500 mg 07/19/19 10:00 Os-Bib 500mg - PO DAILY [facility] Enalapril Maleate 5 mg 07/19/19 10:00 Vasotec - PO DAILY [facility] Enoxaparin Sodium 40 mg 07/19/19 10:00 Lovenox - SQ DAILY EMMANUEL Levothyroxine Sodium 25 mcg 07/19/19 07:00 07/19/19 06:29 Synthroid - PO 25 mcg DAILY@0700 EMMANUEL Administration Metoprolol Tartrate 25 mg 07/18/19 22:00 07/18/19 22:44 Lopressor - PO 25 mg BID EMMANUEL Administration Sodium Chloride 1 gm 07/18/19 22:00 07/18/19 22:44 Sodium Chloride Tablet - PO 1 gm BID EMMANUEL Administration Home Medications Medication Instructions Recorded Aspirin 81 mg PO DAILY 07/18/19 Calcium Carbonate [Calcium] 500 mg PO DAILY 07/18/19 Enalapril Maleate 5 mg PO DAILY 07/18/19 Levothyroxine [Synthroid -] 25 mcg PO DAILY 07/18/19 Metoprolol Tartrate 25 mg PO BID 07/18/19 Sodium Chloride Tablet - 1 gm PO BID 07/18/19 EKG--> sinus rhythm with PAC, age indeterminate inferior infarct, questionable for age indeterminate anterior infarct echo noting EF 55-60%, LV function normal, RV size and function normal, mild mitral and tricuspid regurg, no pericardial effuion HOSPITAL COURSE: Date of Admission:07/18/19 Date of Discharge: 07/19/19 Patient is an 84yof with a PMHx of HTN, hypothyroidism admitted for syncope. #Syncope: most likely due to dehydration s/p IVF NS at 75cc/hr x 1liter. carotid duplex negative # Acute hypothroidism:patient is on 25mvg at home will increase the dose to 50mcg, discussed with who saw the patient on consultation. 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: continue home aspirin, atorvastatin 40mg , lipid profile, further w/u as an outpaitent Hx of Hyponatremia: Now stable , continue sodium bicarb, 1/2NS at 75cc/hr x 1 liter LABS Laboratory Results - last 24 hr 07/18/19 07/18/19 07/18/19 13:50 13:50 21:35 WBC RBC Hgb Hct MCV MCH MCHC RDW Plt Count MPV Absolute Neuts (auto) Neutrophils % Lymphocytes % Monocytes % Eosinophils % Basophils % Nucleated RBC % Sodium 141 Potassium 4.3 Chloride 107 Carbon Dioxide 29 Anion Gap 5 L BUN 26.1 H Creatinine 1.2 Est GFR (CKD-EPI)AfAm 47.39 Est GFR (CKD-EPI)NonAf 40.89 Random Glucose 129 H Calcium 9.1 Phosphorus Magnesium Total Bilirubin 1.0 AST 29 ALT 28 Alkaline Phosphatase 103 Creatine Kinase 105 Troponin I < 0.02 < 0.02 Total Protein 7.6 Albumin 3.7 Triglycerides Cholesterol Total LDL Cholesterol HDL Cholesterol TSH 17.50 H Free T4 0.91 07/19/19 07/19/19 07/19/19 05:25 05:25 05:25 WBC 6.3 RBC 3.83 Hgb 12.7 Hct 37.7 MCV 98.4 H MCH 33.2 MCHC 33.8 RDW 13.4 Plt Count 214 MPV 8.0 Absolute Neuts (auto) 4.0 Neutrophils % 63.2 Lymphocytes % 23.5 D Monocytes % 9.6 Eosinophils % 2.7 Basophils % 1.0 Nucleated RBC % 0 Sodium 142 Potassium 3.8 Chloride 109 H Carbon Dioxide 27 Anion Gap 5 L BUN 18.1 H Creatinine 0.9 Est GFR (CKD-EPI)AfAm 67.10 Est GFR (CKD-EPI)NonAf 57.90 Random Glucose 77 Calcium 8.3 L Phosphorus 3.3 Magnesium 2.2 Total Bilirubin 1.3 H AST 26 ALT 21 Alkaline Phosphatase 79 Creatine Kinase Troponin I Total Protein 6.2 L Albumin 3.0 L Triglycerides 69 Cholesterol 204 H Total LDL Cholesterol 126 H HDL Cholesterol 66 H TSH 30.80 H Free T4 Home Medications Medication Instructions Recorded Aspirin 81 mg PO DAILY 07/18/19 Calcium Carbonate [Calcium] 500 mg PO DAILY 07/18/19 Enalapril Maleate 5 mg PO DAILY 07/18/19 Metoprolol Tartrate 25 mg PO BID 07/18/19 Sodium Chloride Tablet - 1 gm PO BID 07/18/19 Levothyroxine Sodium [Levoxyl] 50 mcg PO DAILY #30 tablet 07/19/19 Vit D3/Folic Acid/B2/B6/B12 1 each PO DAILY #30 tablet 07/19/19 [Folgard Tablet] Minutes to complete discharge: 35 Discharge Summary Problems reviewed: Yes Reason For Visit: SYNCOPE Current Active Problems Syncope (Acute) Condition: Stable - Instructions Diet, Activity, Other Instructions: You were placed on observation for having a weakness generalized. We tested your Thyroid Function and was found out to have low thyroid , will increase your thyroid dose to synthroid 50mcg daily. information security officer seen you in the hospital and was suggested to increase your thyroid medication. please follow up closely with your doctor. If you donot have a doctor at this time, you can follow up with the resident's clinic. PLease take Vitamin D3 with your calcium supplement 1000 unit daily. Referrals: Humberto Dennis MD [Staff Physician] - 1 Week (follow with the resident's clinic) Refugio Mclain MD [Staff Physician] - 2 Weeks Disposition: HOME - Home Medications Comprehensive Discharge Medication List: Ambulatory Orders Aspirin 81 mg PO DAILY 07/18/19 Calcium Carbonate [Calcium] 500 mg PO DAILY 07/18/19 Enalapril Maleate 5 mg PO DAILY 07/18/19 Metoprolol Tartrate 25 mg PO BID 07/18/19 Sodium Chloride Tablet - 1 gm PO BID 07/18/19 Levothyroxine Sodium [Levoxyl] 50 mcg PO DAILY #30 tablet 07/19/19 This patient is new to me today: No Emergency Visit: Yes ED Registration Date: 07/18/19 Care time: The patient presented to the Emergency Department on the above date and was hospitalized for further evaluation of their emergent condition. Critical Care patient: No - Discharge Referral Referred to [facility] Med P.C.: No
--- NOTE | 2019-07-19 13:48 | CONSULT ---
Consult Consult Specialty:: Endocrine Referred by:: dr.[email or web address] hall Reason for Consultation:: Hypothyroidism - History of Present Illness Chief Complaint: tired weak and dry skin History of Present Illness: 84 year old female with a past medical history of Hypothyroidism,HTN, who is presented after a syncopal episode, the patient stated that she had not eaten breakfast, had any fluids that morning, and had missed her dose of her levothyroxine medication. she has episodes of falls in past with injury to cervial spine,she denies chest pain,cough or dyspnea. - Alcohol/Substance Use Hx Alcohol Use: No - Smoking History Smoking history: Never smoked Home Medications - Allergies Allergies/Adverse Reactions: Allergies Allergy/AdvReac Type Severity Reaction Status Date / Time No Known Allergies Allergy Verified 07/18/19 09:50 - Home Medications Home Medications: Ambulatory Orders Aspirin 81 mg PO DAILY 07/18/19 Calcium Carbonate [Calcium] 500 mg PO DAILY 07/18/19 Enalapril Maleate 5 mg PO DAILY 07/18/19 Metoprolol Tartrate 25 mg PO BID 07/18/19 Sodium Chloride Tablet - 1 gm PO BID 07/18/19 Levothyroxine Sodium [Levoxyl] 50 mcg PO DAILY #30 tablet 07/19/19 Review of Systems - Review of Systems Constitutional: reports: No Symptoms Eyes: reports: No Symptoms HENT: reports: No Symptoms Neck: reports: No Symptoms Cardiovascular: reports: Shortness of Breath Respiratory: reports: Exercise Intolerance, SOB on Exertion Gastrointestinal: reports: No Symptoms Genitourinary: reports: No Symptoms Integumentary: reports: No Symptoms Neurological: reports: No Symptoms Physical Exam Vital Signs: Vital Signs Temperature 97.5 F L 07/19/19 02:00 Pulse Rate 71 07/19/19 08:00 Respiratory Rate 20 07/19/19 02:00 Blood Pressure 116/74 07/19/19 08:00 O2 Sat by Pulse Oximetry (%) 97 07/18/19 18:35 Constitutional: Yes: Calm Eyes: Yes: EOM Intact HENT: Yes: Normocephalic Neck: Yes: Trachea Midline Cardiovascular: Yes: Bradycardia Respiratory: Yes: CTA Bilaterally Gastrointestinal: Yes: Normal Bowel Sounds ...Rectal Exam: Yes: Deferred Renal/: Yes: WNL Musculoskeletal: Yes: WNL Extremities: Yes: WNL Edema: No Peripheral Pulses WNL: Yes Neurological: Yes: Alert, Oriented Labs: CBC, BMP 07/19/19 05:25 07/19/19 05:25 Problem List - Problems (1) Hypothyroidism Problems reviewed: Yes Code(s): E03.9 - HYPOTHYROIDISM, UNSPECIFIED Qualifiers: 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 Qualified Code(s): E03.8 - Other specified hypothyroidism; E06.3 - Autoimmune thyroiditis Assessment/Plan Current Active Problems hypothyroidism fanta sp syncope episode Laboratory Results - last 24 hr 07/18/19 07/18/19 07/18/19 13:50 13:50 21:35 WBC RBC Hgb Hct MCV MCH MCHC RDW Plt Count MPV Absolute Neuts (auto) Neutrophils % Lymphocytes % Monocytes % Eosinophils % Basophils % Nucleated RBC % Sodium 141 Potassium 4.3 Chloride 107 Carbon Dioxide 29 Anion Gap 5 L BUN 26.1 H Creatinine 1.2 Est GFR (CKD-EPI)AfAm 47.39 Est GFR (CKD-EPI)NonAf 40.89 Random Glucose 129 H Calcium 9.1 Phosphorus Magnesium Total Bilirubin 1.0 AST 29 ALT 28 Alkaline Phosphatase 103 Creatine Kinase 105 Troponin I < 0.02 < 0.02 Total Protein 7.6 Albumin 3.7 Triglycerides Cholesterol Total LDL Cholesterol HDL Cholesterol TSH 17.50 H Free T4 0.91 07/19/19 07/19/19 07/19/19 05:25 05:25 05:25 WBC 6.3 RBC 3.83 Hgb 12.7 Hct 37.7 MCV 98.4 H MCH 33.2 MCHC 33.8 RDW 13.4 Plt Count 214 MPV 8.0 Absolute Neuts (auto) 4.0 Neutrophils % 63.2 Lymphocytes % 23.5 D Monocytes % 9.6 Eosinophils % 2.7 Basophils % 1.0 Nucleated RBC % 0 Sodium 142 Potassium 3.8 Chloride 109 H Carbon Dioxide 27 Anion Gap 5 L BUN 18.1 H Creatinine 0.9 Est GFR (CKD-EPI)AfAm 67.10 Est GFR (CKD-EPI)NonAf 57.90 Random Glucose 77 Calcium 8.3 L Phosphorus 3.3 Magnesium 2.2 Total Bilirubin 1.3 H AST 26 ALT 21 Alkaline Phosphatase 79 Creatine Kinase Troponin I Total Protein 6.2 L Albumin 3.0 L Triglycerides 69 Cholesterol 204 H Total LDL Cholesterol 126 H HDL Cholesterol 66 H TSH 30.80 H Free T4 plan: synthroid 50mcg daily recheck tsh free t4 outpatient
[2019-07-19 13:51] VITALS: BP 138/79; PULSE 66; TEMP 98.4
== END 2019-07-19 15:56 | disposition home or self-care (01) ==
LOC: JER 09:45 → JERBED 14:27 → J4W 20:19
PROVIDERS: ADMIT Internal Medicine; ATTEND Internal Medicine
PROC: 3E0337Z Introduction of Electrolytic and Water Balance Substance into Peripheral Vein, Percutaneous Approach (ICD-10-PCS; principal; 2019-07-18)
PROC: 3E013GC Introduction of Other Therapeutic Substance into Subcutaneous Tissue, Percutaneous Approach (ICD-10-PCS; 2019-07-18)
DX: R55 Syncope and collapse (principal); I10 Essential (primary) hypertension; E03.9 Hypothyroidism, unspecified; I25.2 Old myocardial infarction; Z79.82 Long term (current) use of aspirin
CPT/HCPCS: 36415; 71046-TC-FY; 80053; 80061; 82550; 82962; 83721; 83735; 84100; 84439; 84443; 84481; 84484; 85025; 93005; 93010; 93306-TC; 93880-TC; 97116-GP; 97161-GP; 99285-25; G0378